=== PATIENT | male | born 1945 | race Hispanic/Latino ===

== ENCOUNTER → 2021-06-02 10:37 | Outpatient (CLI) | payer OTHER, SELFPAY ==
[2021-06-02 12:28] LABS: COVID19 -Nasal RAPID Negative (Negative)
== END ==
PROVIDERS: Family Provider Internal Medicine; PCP Internal Medicine; Referring Provider Physician Assistant; Visit Provider Physician Assistant
DX: Z20.822 Contact with and (suspected) exposure to COVID-19 (principal)
CPT/HCPCS: 87635; C9803

== ENCOUNTER 2021-06-05 10:54 | Observation (INO) | payer OTHER, SELFPAY ==
[2021-05-30 12:36] VITALS: BMI 41.0
[2021-06-04] VITALS (16 sets, daily range): BP systolic 76–140; BP diastolic 28–84; PULSE 44–83; RESP 13–28; TEMP 35.1–37.5; O2SAT 90–99; BMI 41.0
--- NOTE | 2021-06-04 06:30 | DI.RAD.S_ITS ---
PROCEDURE: XR KNEE RT 1TO2V INDICATIONS: Postop films TECHNIQUE: 2 view(s) of the knee acquired. COMPARISON: [facility], CR, XR KNEE 1 OR 2 VIEWS RIGHT, 11/29/2020, 13:11. [facility], CR, XR TIBIA FIBULA RIGHT, 04/24/2021, 11:17. [facility], CR, XR TIBIA FIBULA RIGHT, 05/22/2021, 11:55. [facility], CR, KNEE 1-2 VIEWS LEFT, 02/12/2017, 16:11. FINDINGS: Bones: Patient is status post knee joint arthroplasty. Hardware components are in expected positions. Visualized bony structures are intact. Old partially healed fibular head fracture Soft tissues: Overlying postoperative changes are noted. IMPRESSION: Total right knee prosthesis in place Healing fibular head fracture Approved by: Werner Stearns M.D. on 06/04/2021 at 11:49
[2021-06-04] MEDS: ACETAMINOPHEN 325 MG TABLET 975 MG PO (07:01)
[2021-06-04] MEDS: CELECOXIB 200 MG CAPSULE PO (07:01)
[2021-06-04] MEDS: PREGABALIN 75 MG CAPSULE PO (07:01)
[2021-06-04] MEDS: LACTATED RINGERS 1,000 ML 42 ML IV ×2 (07:03→09:35)
--- NOTE | 2021-06-04 07:30 | PM.PREOP ---
Pre-operative Note COVID-19 COVID-19 status: Negative Result date/Date tested (Pos, Neg/Pending): 06/02/21 Interval Note History & Physical reviewed/Exam performed by Physician: Yes Changes to H&P: No
[2021-06-04] MEDS: CEFAZOLIN VIAL 3 GM in SODIUM CHLORIDE 0.9% 100 ML 200 ML IV (07:48)
--- NOTE | 2021-06-04 08:29 | SUR.OPER ---
Supine on padded OR bed. Pillow under head, arms secured on padded armboards <90 degree abduction. Safety belt across torso. Non-operative leg secured with tape over blanket over lower leg. Operative leg secured in DeMayo/Cas/Nathe positioner. Foam padded brace at thigh of operative leg.
[2021-06-04] MEDS: BUPIVACAINE 0.25% W/ EPI 30 ML VIAL 60 ML INJ (08:47)
[2021-06-04] MEDS: MORPHINE 4 MG/ML INJ INJ (08:48)
[2021-06-04] MEDS: BUPIVACAINE LIPOSOME 266 MG/20 ML VIAL INJ (08:48)
[2021-06-04] MEDS: LACTATED RINGERS 1,000 ML 100 ML IV ×2 (09:45→16:19)
--- NOTE | 2021-06-04 10:17 | PM.OP.1 ---
Operative Date/Time/Diagnoses Date of procedure: 06/04/21 Time of procedure: 10:17 Pre-op diagnosis: 1. Right knee osteoarthritis 2. Rheumatoid arthritis 3. Nonunion of medial tibial plateau fracture Post-op diagnosis: same Procedure & Clinicians Procedure: Right total knee replacement with revision type tibial tray and stem Same procedure as scheduled: Yes Indications: The patient has had progressively worsening right knee pain with radiographic changes consistent with arthritis and a prior tibial plateau fracture with nonunion. Non-operative management has failed and the patient has requested total knee replacement. The risks, benefits and alternatives to surgery were discussed with the patient prior to proceeding. Risks discussed included, but were not limited to, failure to relieve pain, stiffness, infection, nerve damage, deep venous thrombosis, pulmonary embolism, stroke, coma, heart attack, permanent paralysis and , as well as the potential need for eventual revision of the prosthetic. Surgeon: Syed Hickman Assessment Expert: Lazarus Cummins Click Yes if Unassisted: No Anesthesia Type: General, Spinal and Local Operative Notes Findings: Widespread osteoarthritis in all 3 compartments with oblique vertical fracture of the medial tibial plateau with nonunion of the anteromedial corner. Closure Type: primary Specimen(s): none sent Prosthetic devices, grafts, tissues, transplants, or devices: Implants used in this procedure were manufactured by the [employer] and [employer] and included the BCS II Journey total knee replacement with a size 7 right Oxinium femoral component, a size 5 right legion revision tibial base plate with Journey locking detail, a 4 mm offset farm equipment service technician and a straight 18 mm x 120 mm stem, there was a 9 mm cross-linked journey BCS II knee tibial insert and a 32 mm oval Alfreda II patella. Applied: implant(s) Estimated Blood Loss (mL): 50 Blood products transfused: none Tourniquet time (min): 81 Procedure in detail: The patient was seen in the pre-operative area, where the patient identified the right knee as the operative site and this was marked with my initials. The patient received pre-operative antibiotics, and was taken to the operating room and placed on the operative table in the supine position. After satisfactory anesthesia, a multimedia specialist out was performed. The right leg was encircled with a tourniquet about the proximal thigh, and the leg was prepared from the toes to the tourniquet with ChloraPrep in the usual fashion and draped through sterile drapes. The leg was elevated and exsanguinated with Eschmark bandage and the tourniquet inflated to 250 mmHg pressure. The knee was approached through an approximately 18 cm incision centered over the patella and carried into the knee through a medial parapatellar arthrotomy. The anterior osteophytes and soft tissues were removed. The rotational landmarks of [place]'s line and the transepicondylar axis were marked on the femur with electrocautery, and intramedullary guide holes for the femur and tibia were created. The distal femoral cut was made in 6 degrees of valgus using the intramedullary guide at the +2 cut setting due to a pre-existing flexion contracture. The proximal tibial cut was then made using the intramedullary guide, taking 12 mm of bone off the less involved side. The deeper cut was used to accommodate the revision type tibial base plate. The extension gap was checked and the rotation of the femoral component confirmed with the gap balancing system. The anterior, posterior and chamfer cuts were then made. The posterior osteophytes and soft tissues were then removed. The posterior capsule was injected with part of a mixture of 60 ml 0.25% Marcaine mixed with 20 ml Exparel and 4 mg of morphine for post-operative pain control. The remainder of this mixture was injected into the capsule and subcutaneous tissues during cement curing. The tibia was prepared with the reamers for the revision tibial stem. He reamed to a size 16 with minimal bite. A size 18 which was the next step needed significant cortical reaming but it did fit. The trial tibial template were applied and a size 5 fit the best. This required a 4 mm offset at the 6 o'[address] position to place the tray in the appropriate position. The appropriate proximal reaming to allow the space for the farm equipment service technician was then performed. A trial prosthetic was assembled and fit well. The keel was impacted through the trial prosthetic. Trial femoral component was then placed and the intercondylar notch cut through the femoral trial. Range of motion was 0-135 degrees, with good stability throughout the range. The patella was then cut to accommodate the patellar prosthetic. There was no need for a lateral release. The trials were then removed, and the femoral hole plugged with a bone plug. The bone was prepared with pulsatile lavage, and dried with a sponge. Cement was applied and the final prosthetics placed. Excess cement was removed during and after cement curing. After confirming there was no extruded cement posteriorly, the final tibial insert was placed. The knee was copiously irrigated and the tourniquet deflated. Hemostasis was obtained. The capsule was closed with interrupted # 2 polyester suture. The subcutaneous layer was closed with 3-0 Vicryl, and the skin with a running 3-0 V-Lock suture and Dermabond. A Stan dressing was applied and the patient was taken to recovery having tolerated the procedure well. Complications: none Post-operative Condition: stable Disposition: PACU Plan for aftercare: The patient will be maintained on a standard total knee replacement protocol with weight bearing as tolerated. The patient will receive aspirin and sequential compression devices for DVT prophylaxis. The patient will be discharged home when safe for the home environment.
[2021-06-04] MEDS: ONDANSETRON 4 MG/2 ML INJ IV (11:58)
[2021-06-04] MEDS: AMLODIPINE 5 MG TABLET 10 MG PO (12:00)
[2021-06-04] MEDS: hydroCHLOROthiazide 25 MG TABLET PO (12:00)
[2021-06-04] MEDS: POTASSIUM CHLORIDE 10 MEQ TAB PO (12:01)
[2021-06-04] MEDS: polyethylene glycoL 3350 17 GM POWD.PACK PO (12:09)
[2021-06-04] MEDS: MELOXICAM 7.5 MG TABLET 15 MG PO (12:09)
[2021-06-04] MEDS: INSULIN LISPRO 100 UNIT/ML 3ML VIAL 10 UNIT SUBCUT (12:47)
[2021-06-04] MEDS: INSULIN LISPRO 100 UNIT/ML 3ML VIAL SUBCUT (12:48)
--- NOTE | 2021-06-04 13:27 | PC.NURSE ---
Pt arrived on floor at approx 1100 from PACU. He denied pain and was bradycardic at 45 and 92% on 3L. MD aware. SCDs on bilateral legs. R knee dressing C/D/I and green light indicator on MINESH illuminated. Pt skin is intact but for surgical incision and small bruise on lateral L wrist unknown origin. Pt's spouse Debbie advised that patient has a paradoxical reaction to oxycodone; he becomes agitated and uncooperative, so pain medication switched to dilaudid. Pt had N/V before lunch x 2, 200 mLs and 600 mLs, but resolved with IVP Zofran. Spouse and bedside and patient able to sleep.
[2021-06-04] MEDS: ACETAMINOPHEN 325 MG TABLET 650 MG PO ×2 (14:07→20:36)
[2021-06-04] MEDS: ONDANSETRON 4 MG ODT PO (14:09)
--- NOTE | 2021-06-04 14:16 | PC.NURSE ---
Pt O2 sat = 94% on 2L.
--- NOTE | 2021-06-04 15:45 | PT.IIE ---
Current Diagnoses Rheumatoid arthritis, unspecified (06/04/21) Unilateral primary osteoarthritis, right knee (06/04/21) Displaced bicondylar fracture of right tibia, subsequent encounter for closed fracture with nonunion (06/04/21) Surgery Performed Operation Date: 06/04/21 07:45 Actual Procedures p Total Knee Arthroplasty(Right) - Syed Hickman MD Medical History (Last Reviewed 06/04/21 @ 08:26 by Medina Do RN) Anemia Aortic stenosis Asthma Diabetes Diabetic neuropathy Former smoker Heart murmur History of hemorrhoids HLD (hyperlipidemia) [place] (hard of hearing) HTN (hypertension) Kidney stones LVH (left ventricular hypertrophy) Nuclear senile cataract LIO on CPAP Presbyopia Physical Therapy Inpatient Evaluation/Re-Eval M1 PT/OT-IP Prior Functional Status Start: 06/04/21 12:03 Freq: NEEDED Status: Active Protocol: Document 06/04/21 15:45 AW (Rec: 06/04/21 16:41 AW [id number]) Medical Review Prior Functional Status Medical History Reviewed Yes Communication WNL. Pt is an effective verbal communicator. Mobility and Gait Pt is modified independent with use of 4WW for household and very limited community mobility. He has been using the walker since rehabbing from a fall in June 2020 with tibial plateau fracture. Before that injury, he did not use any assistive device. Activities of Daily Living and IADL's Independent with dressing and showering. Pt states he uses a urinal for night time voids to avoid painful ambulation and reduce risk of falls. Social History Household Members spouse Living Arrangements House Number of Floors (Floors) One Floor Number of Stairs To Enter/Railing? Ramped entry through garage. Pt states there is a sunken living room in the house but everything has been set up so that he does not need to access that room. Home Environment Standard Height Toilet,Tub/ Shower Home Equipment Front Wheel Walker,Four Wheel Walker,Straight Cane,Manual Wheelchair,Raised Toilet Seat Without Armrests,Tub Transfer Bench,Hand Held Shower,Sock Aid,Grab Bars Near Toilet Employment Status Retired Additional Social History Comment Pt lives with his who is retired. She will be available and able to assist as needed at discharge. M2 PT-IP Current Condition Start: 06/04/21 12:03 Freq: NEEDED Status: Active Protocol: Document 06/04/21 15:45 AW (Rec: 06/04/21 16:41 AW [id number]) Physical Therapy Current Condition Current Condition Evaluation Date 06/04/21 Treatment Diagnosis s/p R TKA; difficulty in walking Onset Date 06/04/21 Weight Bearing Status Weight Bearing Status Weight Bear as Tolerated M3 PT-IP Subjective Start: 06/04/21 12:03 Freq: NEEDED Status: Active Protocol: Document 06/04/21 15:45 AW (Rec: 06/04/21 16:41 AW [id number]) Subjective Physical Therapy Visit Type Type Initial Evaluation Visit Start Time 15:11 Visit Stop Time 15:45 Total Visit Minutes 34 Notes Pt's spouse was present throughout evaluation Number of MACHINIST GENERAL Visits 0 Physical Therapy Visit Comments Patient Comments Pt has been quite nauseous but hasn't vomited in over an hour. He is willing to participate with PT Patient Goals Return home with spouse support Therapy Pain Assessment Pain When Pain Assessed During Mobility Pain Present Pain Present Pain Reported Location r knee Intensity 8 Scale Used Numeric (0 - 10) Pain Management Techniques Apply Cold,Elevation,Timing of Activity with Medications M4 PT-IP Mobility and Gait Start: 06/04/21 12:03 Freq: NEEDED Status: Active Protocol: Document 06/04/21 15:45 AW (Rec: 06/04/21 16:41 AW [id number]) PT-Bed Mobility Assessment Supine to Sit Supine to Sit Minimal Assistance,1 Person Assistance,Bedrails PT-Transfer Assessment Sit to and From Stand Sit to and from Stand Minimal Assistance,1 Person Assistance,Use of Upper Extremities Equipment Transfer Assistive Device Gait Belt,Front Wheeled Walker Orthotic/Prosthetic Devices or Brace: No Transfers Transfer Destination Chair Transfer Technique Stand Step Pivot Transfer Ability Level of Assist Contact Guard Assistance,1 Person Assistance,Use of Upper Extremities Comments Mobility Comments Pt was lying in bed as PT arrived. BP 133/59 HR 47 SpO2 98% on 2L/min via NC. He was able to scoot toward left EOB and needed min assist to right his trunk. In sitting EOB, pt complained of slight lightheadedness. BP was stable . SpO2 was 91% on 2L. Pt stood from the bed min A x 1 and took short halting steps with FWW to transfer to the chair. Stand to sit required CGA. Pt reported mild lightheadedness and nausea, declining further mobility. Reported findings to RN. Left pt with ice packs applied to right knee, call light and tray table in reach. Gait Assessment Gait Gait Assistance Required: Contact Guard Assist Distance (Feet) 3 Able to Maintain Weight Bearing Status Yes During Gait Assistive Devices Assistive Device Gait Belt,Front Wheeled Walker Orthotic/Prosthetic Devices or Brace: No Gait Deviations General Gait Pattern Antalgic,Decreased Stride Length,Decreased Feet Clearance,Wide Based Gait Factors Limiting Gait Function Factors Limiting Gait Function Decreased Activity Tolerance, Decreased Strength,Limited Range of Motion,Pain,Poor Balance Comments Gait Comments Transfer only. See mobility comments for details. Stair Climbing Assessment Comments Stair Climbing Comments Not assessed. Pt will not need to climb stairs at home. PT-Balance Assessment Sitting Balance and Reactions Static Sitting Balance Ability Good Dynamic Sitting Balance Ability Good Standing Balance and Reactions Static Standing Balance Ability Fair Dynamic Standing Balance Ability Fair Device Used FWW M5 PT-IP Objective Assessments Start: 06/04/21 12:03 Freq: NEEDED Status: Active Protocol: Document 06/04/21 15:45 AW (Rec: 06/04/21 16:41 AW [id number]) Orientation Orientation/Cognition Level of Alertness Alert Orientation Name,Day of Week,Place, Situation Language Function Ability No Deficits Noted Safety Awareness Understands Safety Issues Memory Description No Deficits Noted Gross Range of Motion Lower Extremity ROM Assessment Right Impaired Strength Lower Extremity Strength Assessment Right Impaired Hip 4/5 Ankle 4+/5 Sensation Assessment Sensation Gross Sensation WNL M6 PT-IP Treatment Start: 06/04/21 12:03 Freq: NEEDED Status: Active Protocol: Document 06/04/21 15:45 AW (Rec: 06/04/21 16:41 AW [id number]) Physical Therapy Treatment Exercises Exercises Ankle Pumps,Quad Sets,Heel Slides,Passive Knee Extension Hang Education Education Provided Weight Bearing Status,Post-Op Packet,Safety Other Treatments Other Treatment Performed Provided education on PT plan of care, weightbearing status, and safe use of FWW. M7 PT-IP Assessment and Plan Start: 06/04/21 12:03 Freq: NEEDED Status: Active Protocol: Document 06/04/21 15:45 AW (Rec: 06/04/21 16:41 AW [id number]) PT Summary Assessment and Plan Potential Rehabilitation Potential Good Status of Condition at Evaluation Evolving Summary Impairments Pain,ROM,Strength,Balance,Bed Mobility,Transfers,Gait, Activity Tolerance Assessment Summary Adrián is a 75 yo man with history of right tibial plateau fracture with malunion . He was seen for PT evaluation on POD0 following R TKA. He is modified independent at baseline with 4WW for household and limited community ambulation. On assessment, pt required CGA to min assist for all mobility. PT anticipates he will progress and be safe to discharge home with assist and outpatient PT once medically cleared. Goals Bed Mobility Goal Standby Assistance Transfer Goal Standby Assistance,Front Wheeled Walker Gait Goal Standby Assistance,Front Wheel Walker Gait Distance 75 Days to Meet Goals 3 Frequency of Treatment Frequency Of Treatment Twice a Day Treatment Plan Physical Therapy Treatment Plan Bed Mobility Training,Transfer Training,Gait Training, Therapeutic Exercise,Balance Retraining,Post Op Education, Discharge Planning,Hot or Cold Pack Other Recommendations and Next Treatment review ther ex; transfers and Focus gait training Precautions Other Precautions WBAT RLE Recommendations To Nursing Amount of Assist Needed 1 Person Assist Discharge Recommendations PT Discharge Recommendations Home with Assistance, Outpatient PT Transportation Needs at Discharge Private Vehicle
[2021-06-04] MEDS: DOCUSATE 100 MG CAPSULE PO (20:35)
[2021-06-04] MEDS: ATORVASTATIN 20 MG TABLET PO (20:35)
[2021-06-04] MEDS: ENALAPRIL 20 MG TABLET PO (20:36)
[2021-06-04] MEDS: carvediloL 12.5 MG TABLET 25 MG PO (20:36)
[2021-06-04] MEDS: ASPIRIN EC 81 MG TABLET PO (20:36)
[2021-06-04] MEDS: INSULIN GLARGINE 100 UNIT/ML 3ML PEN 50 UNIT SUBCUT (20:38)
[2021-06-04] MEDS: HYDROMORPHONE 4 MG TABLET PO (21:02)
[2021-06-05] VITALS (11 sets, daily range): BP systolic 105–145; BP diastolic 57–75; PULSE 58–71; RESP 15–19; TEMP 36.8–37.3; O2SAT 89–96
[2021-06-05] MEDS: HYDROMORPHONE 2 MG TABLET PO ×2 (01:26→07:57)
[2021-06-05] MEDS: LACTATED RINGERS 1,000 ML 100 ML IV (02:32)
[2021-06-05 05:30] LABS: Hematocrit 30.8 % (41-53); Hemoglobin 10.1 g/dL (13.5-17.5)
--- NOTE | 2021-06-05 07:23 | PM.PNPO.1 ---
Subjective Subjective Date Patient Seen: 06/05/21 Time Patient Seen: 07:23 Interval history: The patient reports he has reasonable pain control. Exam Vital Signs (past 8 hours): - 06/05/21 03:15 Temperature 98.8 F Pulse Rate 71 Respiratory Rate 18 Blood Pressure 137/67 Pulse Oximetry 93 Oxygen Delivery Method Nasal Cannula,CPAP Oxygen Flow Rate 2 Narrative Exam Narrative: Right knee wound is dressed with no drainage on the bandage. Calf is soft. Light touch and motion are intact in the right lower extremity. Alignment is neutral. Objective Labs Result Diagrams: 06/05/21 05:01 Labs: Laboratory Results - last 24 hr 06/05/21 05:01 Hgb 10.1 L Hct 30.8 L PFSH Medical History Anemia Aortic stenosis Asthma Diabetes Diabetic neuropathy Former smoker Heart murmur History of hemorrhoids HLD (hyperlipidemia) [place] (hard of hearing) HTN (hypertension) Kidney stones LVH (left ventricular hypertrophy) Nuclear senile cataract LIO on CPAP Presbyopia Surgical History (Updated 05/30/21 @ 12:42 by Leann Lee RN) History of arthroplasty of left knee (02/12/17) History of lithotripsy History of total right hip arthroplasty Social History household members: spouse Smoking Status: Former smoker alcohol intake: never Assessment & Plan Post-op Postoperative Procedures: Procedures Operation Date: 06/04/21 07:45 Actual Procedure Side Surgeon p Total Knee Arthroplasty Right Syed Hickman MD Postoperative day: 1 Postoperative status narrative: The patient is doing well postoperatively after his total knee replacement with a revision tibia due to tibial plateau fracture nonunion. He is morbidly obese and has limited help at home. He has been able to get up and make a few steps in the room but has not made any steps in the hallway. Postoperative plan: routine post-op care and ambulate Postoperative plan narrative: Physical therapy today. Given his size and medical comorbidities, it is unlikely he will be able to go home today. We will continue physical therapy implant discharge tomorrow. Time Spent With Patient Time with patient: less than 15 minutes
[2021-06-05] MEDS: AMLODIPINE 5 MG TABLET 10 MG PO (07:57)
[2021-06-05] MEDS: hydroCHLOROthiazide 25 MG TABLET PO (07:57)
[2021-06-05] MEDS: ACETAMINOPHEN 325 MG TABLET 650 MG PO ×3 (07:57→21:12)
[2021-06-05] MEDS: hydrOXYzine pamoate 25 MG CAPSULE PO ×2 (07:57→13:08)
[2021-06-05] MEDS: POTASSIUM CHLORIDE 10 MEQ TAB PO (07:58)
[2021-06-05] MEDS: ASPIRIN EC 81 MG TABLET PO ×2 (07:58→21:11)
[2021-06-05] MEDS: carvediloL 12.5 MG TABLET 25 MG PO ×2 (07:58→21:11)
[2021-06-05] MEDS: MELOXICAM 7.5 MG TABLET 15 MG PO (08:17)
[2021-06-05] MEDS: FISH OIL 1,000 MG CAPSULE 1000 MG PO (08:17)
[2021-06-05] MEDS: DOCUSATE 100 MG CAPSULE PO ×2 (09:00→21:11)
[2021-06-05] MEDS: INSULIN LISPRO 100 UNIT/ML 3ML VIAL 10 UNIT SUBCUT ×2 (10:16→13:07)
[2021-06-05] MEDS: ENALAPRIL 20 MG TABLET PO ×2 (10:22→21:12)
[2021-06-05] MEDS: HYDROMORPHONE 4 MG TABLET PO ×3 (10:39→21:12)
--- NOTE | 2021-06-05 11:13 | CM.DANOTE ---
DCP: Case received, EMR reviewed and met with patient. Introduced self and role. Was able to obtain information from patient regarding his baseline activity status prior to surgery, as well as his current living situation. DCP assessment completed with information currently available. Patient is a 75 year old male who admitted yesterday morning to the care of the orthopedic team. PCP: Dr. Xie. Payer: confirmed: [employer]. Patient came to the hospital via private vehicle for a surgical procedure. He had right total knee arthroplasty. He has history of osteoarthritis of his right knee. He has history of falls, and has been using 4WW at home since recent fall. Met with patient in his room. He is alert and oriented, and was sitting up in his chair. He resides in [facility] with his spouse, Debbie. He confirmed that he uses a 4WW for home use at his baseline, and has been able to drive. He stated that he is currently set up with outpatient P.T. in [facility]. P: DCP to continue to follow. He will continue to work with P.T. According to ortho's notes, he will be here another day due to co-morbidities. Catherine Messina RN/Replacer
--- NOTE | 2021-06-05 11:33 | PT.IPTN ---
Current Diagnoses Rheumatoid arthritis, unspecified (06/05/21) Unilateral primary osteoarthritis, right knee (06/05/21) Displaced bicondylar fracture of right tibia, subsequent encounter for closed fracture with nonunion (06/05/21) Surgery Performed Operation Date: 06/04/21 07:45 Actual Procedures p Total Knee Arthroplasty(Right) - Syed Hickman MD Physical Therapy Treatment Note M2 PT-IP Current Condition Start: 06/04/21 12:03 Freq: NEEDED Status: Active Protocol: Document 06/04/21 15:45 AW (Rec: 06/04/21 16:41 AW [id number]) Physical Therapy Current Condition Current Condition Evaluation Date 06/04/21 Treatment Diagnosis s/p R TKA; difficulty in walking Onset Date 06/04/21 Weight Bearing Status Weight Bearing Status Weight Bear as Tolerated M3 PT-IP Subjective Start: 06/04/21 12:03 Freq: NEEDED Status: Active Protocol: Document 06/05/21 11:03 SP (Rec: 06/05/21 11:55 SP [id number]) Subjective Physical Therapy Visit Type Type Treatment Note Visit Start Time 11:03 Visit Stop Time 11:33 Total Visit Minutes 30 Notes Spouse started caregiver training: donned gait belt, CGA during gait yulissa thus far. WIRE SPINNER in room taking vitals: supine 129/57 HR 56 SaO2 93% on 2L seated at EOB w/ ASSOCIATE EMBALMER/FUNERAL DIRECTOR: 131/62, HR 62, SaO2 88% on 1L, increased to 91% with breath instruction. seated post standing mobility: 125/46, HR 64 84% on 1L increase to 88% on 1L w / breath, low 90s on 2L. Number of ASSOCIATE EMBALMER/FUNERAL DIRECTOR Visits 1 Physical Therapy Visit Comments Patient Comments Pt willing to participate in PT. Patient Goals Return home with spouse support Therapy Pain Assessment Pain When Pain Assessed At Rest Pain Present Pain Present Pain Reported Location r knee Intensity 7 Scale Used 7/10 at rest, 6.5/10 during gait Pain Behaviors Facial Grimacing,Guarding Pain Management Techniques Apply Cold,Distraction,Re- positioning,Timing of Activity with Medications M4 PT-IP Mobility and Gait Start: 06/04/21 12:03 Freq: NEEDED Status: Active Protocol: Document 06/05/21 11:03 SP (Rec: 06/05/21 11:55 SP [id number]) PT-Bed Mobility Assessment Supine to Sit Supine to Sit Moderate Assistance,1 Person Assistance Scooting Scooting to Edge of Bed Contact Guard Assistance PT-Transfer Assessment Sit to and From Stand Sit to and from Stand Minimal Assistance,1 Person Assistance,Use of Upper Extremities Equipment Transfer Assistive Device Gait Belt,Front Wheeled Walker Orthotic/Prosthetic Devices or Brace: No Transfers Transfer Destination Chair Transfer Technique pt ambulated using FWW Transfer Ability Level of Assist Contact Guard Assistance,1 Person Assistance,Use of Upper Extremities Comments Mobility Comments Supine>sit Max A with HOB flat used therapist hand to pull from RUE, cued for LUE WB self mobilize on bed to right trunk, scoot to EOB CGA and instructed self RLE repositioning using gait belt, ASSOCIATE EMBALMER/FUNERAL DIRECTOR applied gait belt to RLE. Pt SOB +, instructed pt on proper breath, decrease in saturation during mobility. Decreased 1L 84%, improvement with breath 88%, mid low- mid 90s on2L. Sit>Stand 5% A using FWW proper hand placement. Gait 2 laps around room approx 60 ft with noted heavy BUE WB on FWW improved but decreased WB onto RLE, quick LLE swing through step to gait, cued for heel toe with improvement in decreased toe walking on RLE. Pt returned to chair, Min A by with cues by ASSOCIATE EMBALMER/FUNERAL DIRECTOR for slow descent proper use of BUE and RLE in front, Min flopped into chair discussed will progress better control next tx and awareness demo with CNAs. Instructed pt on LE exercises in sitting. Will instruction next tx on supine. Pt had call light and all needs in reach in room before left. Gait Assessment Gait Gait Assistance Required: Contact Guard Assist Distance (Feet) 60 Able to Maintain Weight Bearing Status Yes During Gait Assistive Devices Assistive Device Gait Belt,Front Wheeled Walker Orthotic/Prosthetic Devices or Brace: No Gait Deviations General Gait Pattern Antalgic,Decreased Stride Length,Decreased Feet Clearance,Step-to Gait,Wide Based Gait Factors Limiting Gait Function Factors Limiting Gait Function Decreased Activity Tolerance, Decreased Strength,Limited Range of Motion,Pain, Respiratory Distress Comments Gait Comments See mobility comments. Stair Climbing Assessment Comments Stair Climbing Comments Not assessed. Pt will not need to climb stairs at home. PT-Balance Assessment Sitting Balance and Reactions Static Sitting Balance Ability Good Dynamic Sitting Balance Ability Good Standing Balance and Reactions Static Standing Balance Ability Fair Dynamic Standing Balance Ability Fair Device Used FWW M5 PT-IP Objective Assessments Start: 08/09/21 12:03 Freq: NEEDED Status: Active Protocol: Document 06/04/21 15:45 AW (Rec: 06/04/21 16:41 AW [id number]) Orientation Orientation/Cognition Level of Alertness Alert Orientation Name,Day of Week,Place, Situation Language Function Ability No Deficits Noted Safety Awareness Understands Safety Issues Memory Description No Deficits Noted Gross Range of Motion Lower Extremity ROM Assessment Right Impaired Strength Lower Extremity Strength Assessment Right Impaired Hip 4/5 Ankle 4+/5 Sensation Assessment Sensation Gross Sensation WNL M6 PT-IP Treatment Start: 06/04/21 12:03 Freq: NEEDED Status: Active Protocol: Document 06/05/21 11:03 SP (Rec: 06/05/21 11:55 SP [id number]) Physical Therapy Treatment Exercises Exercises Ankle Pumps,Quad Sets,Heel Slides,Seated Knee Flexion/ Extension Education Education Provided Weight Bearing Status,Post-Op Packet,Safety Other Treatments Other Treatment Performed Discussed supine ex but not performed, performed seated heel slides and DF to allow increase toe clearance while in chair. Will assess supine next tx. M7 PT-IP Assessment and Plan Start: 06/04/21 12:03 Freq: NEEDED Status: Active Protocol: Document 06/05/21 11:03 SP (Rec: 06/05/21 11:55 SP [id number]) PT Summary Assessment and Plan Potential Rehabilitation Potential Good Status of Condition at Evaluation Evolving Summary Impairments Pain,ROM,Strength,Balance,Bed Mobility,Transfers,Gait, Activity Tolerance Progress Towards Goals Progressing Toward Goals,Slow Progress due to Pain,Slow Progress due to Activity Tolerance Assessment Summary Pt required Max A supine>sit w / HOB flat, sit<>stand Min A, gait heavy BUE WB on FWW but improve able WB on RLE, CGA. Will see for pm tx at 1300 to improve strength and functional mobility. ASSOCIATE EMBALMER/FUNERAL DIRECTOR anticipates he will progress and be safe to discharge home with assist and outpatient PT once medically cleared. Goals Bed Mobility Goal Standby Assistance Transfer Goal Standby Assistance,Front Wheeled Walker Gait Goal Standby Assistance,Front Wheel Walker Gait Distance 75 Days to Meet Goals 3 Frequency of Treatment Frequency Of Treatment Twice a Day Treatment Plan Physical Therapy Treatment Plan Bed Mobility Training,Transfer Training,Gait Training, Therapeutic Exercise,Balance Retraining,Post Op Education, Discharge Planning,Hot or Cold Pack Other Recommendations and Next Treatment review ther ex; transfers and Focus gait training. See at 1300 pm. Precautions Other Precautions WBAT RLE Recommendations To Nursing Amount of Assist Needed 1 Person Assist Discharge Recommendations PT Discharge Recommendations Home with Assistance, Outpatient PT
--- NOTE | 2021-06-05 11:33 | PT.IPTN ---
Current Diagnoses Rheumatoid arthritis, unspecified (06/04/21) Unilateral primary osteoarthritis, right knee (06/04/21) Displaced bicondylar fracture of right tibia, subsequent encounter for closed fracture with nonunion (06/04/21) Surgery Performed Operation Date: 06/04/21 07:45 Actual Procedures p Total Knee Arthroplasty(Right) - Syed Hickman MD Physical Therapy Treatment Note M2 PT-IP Current Condition Start: 06/04/21 12:03 Freq: NEEDED Status: Active Protocol: Document 06/04/21 15:45 AW (Rec: 06/04/21 16:41 AW [id number]) Physical Therapy Current Condition Current Condition Evaluation Date 06/04/21 Treatment Diagnosis s/p R TKA; difficulty in walking Onset Date 06/04/21 Weight Bearing Status Weight Bearing Status Weight Bear as Tolerated M3 PT-IP Subjective Start: 06/04/21 12:03 Freq: NEEDED Status: Active Protocol: Document 06/05/21 11:03 SP (Rec: 06/05/21 11:55 SP [id number]) Subjective Physical Therapy Visit Type Type Treatment Note Visit Start Time 11:03 Visit Stop Time 11:33 Total Visit Minutes 30 Notes Spouse started caregiver training: donned gait belt, CGA during gait yulissa thus far. BIODIESEL TECHNOLOGY MANAGER in room taking vitals: supine 129/57 HR 56 SaO2 93% on 2L seated at EOB w/ INTEGRATION PROJECT MANAGER: 131/62, HR 62, SaO2 88% on 1L, increased to 91% with breath instruction. seated post standing mobility: 125/46, HR 64 84% on 1L increase to 88% on 1L w / breath, low 90s on 2L. Number of INTEGRATION PROJECT MANAGER Visits 1 Physical Therapy Visit Comments Patient Comments Pt willing to participate in PT. Patient Goals Return home with spouse support Therapy Pain Assessment Pain When Pain Assessed At Rest Pain Present Pain Present Pain Reported Location r knee Intensity 7 Scale Used 7/10 at rest, 6.5/10 during gait Pain Behaviors Facial Grimacing,Guarding Pain Management Techniques Apply Cold,Distraction,Re- positioning,Timing of Activity with Medications M4 PT-IP Mobility and Gait Start: 06/04/21 12:03 Freq: NEEDED Status: Active Protocol: Document 06/05/21 11:03 SP (Rec: 06/05/21 11:55 SP [id number]) PT-Bed Mobility Assessment Supine to Sit Supine to Sit Moderate Assistance,1 Person Assistance Scooting Scooting to Edge of Bed Contact Guard Assistance PT-Transfer Assessment Sit to and From Stand Sit to and from Stand Minimal Assistance,1 Person Assistance,Use of Upper Extremities Equipment Transfer Assistive Device Gait Belt,Front Wheeled Walker Orthotic/Prosthetic Devices or Brace: No Transfers Transfer Destination Chair Transfer Technique pt ambulated using FWW Transfer Ability Level of Assist Contact Guard Assistance,1 Person Assistance,Use of Upper Extremities Comments Mobility Comments Supine>sit Max A with HOB flat used therapist hand to pull from RUE, cued for LUE WB self mobilize on bed to right trunk, scoot to EOB CGA and instructed self RLE repositioning using gait belt, INTEGRATION PROJECT MANAGER applied gait belt to RLE. Pt SOB +, instructed pt on proper breath, decrease in saturation during mobility. Decreased 1L 84%, improvement with breath 88%, mid low- mid 90s on2L. Sit>Stand 5% A using FWW proper hand placement. Gait 2 laps around room approx 60 ft using FWW, cued for heel toe with improvement in decrease toe walking on RLE, step to gait. Pt returned to chair, Min A by with cues by INTEGRATION PROJECT MANAGER for slow descent proper use of BUE and RLE in front, Min flopped into chair discussed will progress better control next tx and awareness demo with CNAs. Instructed pt on LE exercises in sitting. Will instruction next tx on supine. Pt had call light and all needs in reach in room before left. Gait Assessment Gait Gait Assistance Required: Contact Guard Assist Distance (Feet) 60 Able to Maintain Weight Bearing Status Yes During Gait Assistive Devices Assistive Device Gait Belt,Front Wheeled Walker Orthotic/Prosthetic Devices or Brace: No Gait Deviations General Gait Pattern Antalgic,Decreased Stride Length,Decreased Feet Clearance,Step-to Gait,Wide Based Gait Factors Limiting Gait Function Factors Limiting Gait Function Decreased Activity Tolerance, Decreased Strength,Limited Range of Motion,Pain, Respiratory Distress Comments Gait Comments See mobility comments. Stair Climbing Assessment Comments Stair Climbing Comments Not assessed. Pt will not need to climb stairs at home. PT-Balance Assessment Sitting Balance and Reactions Static Sitting Balance Ability Good Dynamic Sitting Balance Ability Good Standing Balance and Reactions Static Standing Balance Ability Fair Dynamic Standing Balance Ability Fair Device Used FWW M5 PT-IP Objective Assessments Start: 06/04/21 12:03 Freq: NEEDED Status: Active Protocol: Document 06/04/21 15:45 AW (Rec: 06/04/21 16:41 AW [id number]) Orientation Orientation/Cognition Level of Alertness Alert Orientation Name,Day of Week,Place, Situation Language Function Ability No Deficits Noted Safety Awareness Understands Safety Issues Memory Description No Deficits Noted Gross Range of Motion Lower Extremity ROM Assessment Right Impaired Strength Lower Extremity Strength Assessment Right Impaired Hip 4/5 Ankle 4+/5 Sensation Assessment Sensation Gross Sensation WNL M6 PT-IP Treatment Start: 06/04/21 12:03 Freq: NEEDED Status: Active Protocol: Document 06/05/21 11:03 SP (Rec: 06/05/21 11:55 SP [id number]) Physical Therapy Treatment Exercises Exercises Ankle Pumps,Quad Sets,Heel Slides,Seated Knee Flexion/ Extension Education Education Provided Weight Bearing Status,Post-Op Packet,Safety Other Treatments Other Treatment Performed Discussed supine ex but not performed, performed seated heel slides and DF to allow increase toe clearance while in chair. Will assess supine next tx. M7 PT-IP Assessment and Plan Start: 06/04/21 12:03 Freq: NEEDED Status: Active Protocol: Document 06/05/21 11:03 SP (Rec: 06/05/21 11:55 SP [id number]) PT Summary Assessment and Plan Potential Rehabilitation Potential Good Status of Condition at Evaluation Evolving Summary Impairments Pain,ROM,Strength,Balance,Bed Mobility,Transfers,Gait, Activity Tolerance Progress Towards Goals Progressing Toward Goals,Slow Progress due to Pain,Slow Progress due to Activity Tolerance Assessment Summary Pt required Max A supine>sit w / HOB flat, sit<>stand Min A, gait CGA using FWW. Will see for pm tx at 1300 to improve strength and functional mobility. INTEGRATION PROJECT MANAGER anticipates he will progress and be safe to discharge home with assist and outpatient PT once medically cleared. Goals Bed Mobility Goal Standby Assistance Transfer Goal Standby Assistance,Front Wheeled Walker Gait Goal Standby Assistance,Front Wheel Walker Gait Distance 75 Days to Meet Goals 3 Frequency of Treatment Frequency Of Treatment Twice a Day Treatment Plan Physical Therapy Treatment Plan Bed Mobility Training,Transfer Training,Gait Training, Therapeutic Exercise,Balance Retraining,Post Op Education, Discharge Planning,Hot or Cold Pack Other Recommendations and Next Treatment review ther ex; transfers and Focus gait training. See at 1300 pm. Precautions Other Precautions WBAT RLE Recommendations To Nursing Amount of Assist Needed 1 Person Assist Discharge Recommendations PT Discharge Recommendations Home with Assistance, Outpatient PT
[2021-06-05] MEDS: INSULIN LISPRO 100 UNIT/ML 3ML VIAL SUBCUT (13:07)
--- NOTE | 2021-06-05 13:32 | PT.IPTN ---
Current Diagnoses Rheumatoid arthritis, unspecified (06/05/21) Unilateral primary osteoarthritis, right knee (06/05/21) Displaced bicondylar fracture of right tibia, subsequent encounter for closed fracture with nonunion (06/05/21) Surgery Performed Operation Date: 06/04/21 07:45 Actual Procedures p Total Knee Arthroplasty(Right) - Syed Hickman MD Physical Therapy Treatment Note M2 PT-IP Current Condition Start: 06/04/21 12:03 Freq: NEEDED Status: Active Protocol: Document 06/04/21 15:45 AW (Rec: 06/04/21 16:41 AW [id number]) Physical Therapy Current Condition Current Condition Evaluation Date 06/04/21 Treatment Diagnosis s/p R TKA; difficulty in walking Onset Date 06/04/21 Weight Bearing Status Weight Bearing Status Weight Bear as Tolerated M3 PT-IP Subjective Start: 06/04/21 12:03 Freq: NEEDED Status: Active Protocol: Document 06/05/21 13:13 SP (Rec: 06/05/21 15:38 SP [id number]) Subjective Physical Therapy Visit Type Type Treatment Note Visit Start Time 13:13 Visit Stop Time 13:32 Total Visit Minutes 19 Notes Spouse completed caregiver training gait, sit>supine. SaO2 rest and mob: 2L 94%, rest 91-92% on 1L. Reduced to 84% on 1L during standing mobility. seated rest w/ breath cues 1 min 88% on 1L, 96% on 2L. Number of ACETYLENE OPERATOR Visits 2 Physical Therapy Visit Comments Patient Comments Pt willing to participate in PT. Patient Goals Return home with spouse support Therapy Pain Assessment Pain When Pain Assessed At Rest Pain Present Pain Present Pain Reported Location r knee Intensity 6 Scale Used 6.5/10 at rest and mobility Description Aching,With Movement Pain Behaviors Facial Grimacing Pain Management Techniques Apply Cold,Distraction,Re- positioning,Timing of Activity with Medications M4 PT-IP Mobility and Gait Start: 06/04/21 12:03 Freq: NEEDED Status: Active Protocol: Document 06/05/21 13:13 SP (Rec: 06/05/21 15:38 SP [id number]) PT-Bed Mobility Assessment Sit to Supine Sit to Supine Contact Guard Assistance, Minimal Assistance,1 Person Assistance,Bedrails Scooting Scooting Up and Down in Bed Standby Assistance PT-Transfer Assessment Sit to and From Stand Sit to and from Stand Contact Guard Assistance,1 Person Assistance,Use of Upper Extremities Equipment Transfer Assistive Device Gait Belt,Front Wheeled Walker Orthotic/Prosthetic Devices or Brace: No Transfers Transfer Destination Bed Transfer Technique pt ambulated using FWW Transfer Ability Level of Assist Standby Assistance,Contact Guard Assistance,1 Person Assistance,Use of Upper Extremities Comments Mobility Comments Pt reclined in chair with in room when arrived. Assisted chair leg lowering and RLE support Min A. donned gait belt, Sit>stand CGA with BUE on chair arms RLE forward. Gait around SBA ( also managed O2 tubing) x2 laps then required sit back on bed due to tiring and + SOB sBA with good hand placement due to tiring SBA. Noted PECO drain leakage, ELECTRICIAN MAINTENANCE and ACETYLENE OPERATOR assist another gown and washcloth with self redressing at EOB. Sit>supine Min A via for LEs into bed 5% A, cued castro LLE under RLE, cued for LLE hook under RLE, decided not to use gait belt for self support. Self scoot up in bed using [place] bed rails and LLE WB on bed. Pt had call light and all needs in reach, CP on R knee before left. in room. Gait Assessment Gait Gait Assistance Required: Standby Assistance,Contact Guard Assist,1 Person Assist Distance (Feet) 60 Able to Maintain Weight Bearing Status Yes During Gait Assistive Devices Assistive Device Gait Belt,Front Wheeled Walker Orthotic/Prosthetic Devices or Brace: No Gait Deviations General Gait Pattern Antalgic,Decreased Stride Length,Decreased Feet Clearance,Step-to Gait,Wide Based Gait Factors Limiting Gait Function Factors Limiting Gait Function Decreased Activity Tolerance, Decreased Strength,Limited Range of Motion,Pain, Respiratory Distress Comments Gait Comments See mobility comments. Stair Climbing Assessment Comments Stair Climbing Comments Not assessed. Pt will not need to climb stairs at home. PT-Balance Assessment Sitting Balance and Reactions Static Sitting Balance Ability Good Dynamic Sitting Balance Ability Good Standing Balance and Reactions Static Standing Balance Ability Fair Dynamic Standing Balance Ability Fair Device Used FWW M5 PT-IP Objective Assessments Start: 06/04/21 12:03 Freq: NEEDED Status: Active Protocol: Document 06/04/21 15:45 AW (Rec: 06/04/21 16:41 AW [id number]) Orientation Orientation/Cognition Level of Alertness Alert Orientation Name,Day of Week,Place, Situation Language Function Ability No Deficits Noted Safety Awareness Understands Safety Issues Memory Description No Deficits Noted Gross Range of Motion Lower Extremity ROM Assessment Right Impaired Strength Lower Extremity Strength Assessment Right Impaired Hip 4/5 Ankle 4+/5 Sensation Assessment Sensation Gross Sensation WNL M6 PT-IP Treatment Start: 06/04/21 12:03 Freq: NEEDED Status: Active Protocol: Document 06/05/21 13:13 SP (Rec: 06/05/21 15:38 SP [id number]) Physical Therapy Treatment Education Education Provided Weight Bearing Status,Safety Other Treatments Other Treatment Performed reviewed breath during gait and stop stand rest breath as needed for energy conservation . M7 PT-IP Assessment and Plan Start: 06/04/21 12:03 Freq: NEEDED Status: Active Protocol: Document 06/05/21 13:13 SP (Rec: 06/05/21 15:38 SP [id number]) PT Summary Assessment and Plan Potential Rehabilitation Potential Good Status of Condition at Evaluation Evolving Summary Impairments Pain,ROM,Strength,Balance,Bed Mobility,Transfers,Gait, Activity Tolerance Assessment Summary Pt required CGA sit<> stand,CG - SBA during gait in room using FWW. sit>supine Min A for LE support into bed. Pt's pain still limit his mobility, improved with lessening to Mod WB BUE on FWW step to gait due to pain in RLE during WB, able to get R heel on floor but continue not fully WB on RLE. Continues to need supplimental O2 during mobility, didn't use O2 at home previously. REviewed use of inspirometer with cues for slow breath. Will continue to assess progress. Next tx caregiver training with spouse including bed mobility, transfers, gait. Goals Bed Mobility Goal Standby Assistance Transfer Goal Standby Assistance,Front Wheeled Walker Gait Goal Standby Assistance,Front Wheel Walker Gait Distance 75 Days to Meet Goals 3 Frequency of Treatment Frequency Of Treatment Twice a Day Treatment Plan Physical Therapy Treatment Plan Bed Mobility Training,Transfer Training,Gait Training, Therapeutic Exercise,Balance Retraining,Post Op Education, Discharge Planning,Hot or Cold Pack Other Recommendations and Next Treatment review ther ex; transfers and Focus gait training. caregiver training including bed mob next tx. Precautions Other Precautions WBAT RLE Recommendations To Nursing Amount of Assist Needed 1 Person Assist Discharge Recommendations PT Discharge Recommendations Home with Assistance, Outpatient PT Transportation Needs at Discharge Private Vehicle
[2021-06-05] MEDS: ATORVASTATIN 20 MG TABLET PO (17:27)
[2021-06-05] MEDS: SODIUM CHLORIDE 0.9% FLUSH 10 ML IV (21:13)
[2021-06-05] MEDS: INSULIN GLARGINE 100 UNIT/ML 3ML PEN 50 UNIT SUBCUT (21:14)
[2021-06-06 04:21] VITALS: BP 110/46; PULSE 50; RESP 18; TEMP 36.3; O2SAT 96
--- NOTE | 2021-06-06 06:30 | PC.NURSE ---
Patients O2 was increased to 3L when CPAP was put on at start of shift. Patient has had an O2 saturation of 96-98% throughout the night. Patient would drop to below 90% when CPAP machine would disconnect from O2 but would return to 96-98% when reattached.
--- NOTE | 2021-06-06 06:57 | P.DS_ITS ---
History of Present Illness History of Present Illness Date Patient Seen: 06/06/21 Time Patient Seen: 06:57 Chief complaint: RIGHT TKA *OPB* Narrative: The history and physical is contained in the chart previously completed note, please see this note for that information. Discharge Providers Provider Date of admission: 06/05/21 10:54 Discharge Date: 06/06/21 Primary care physician: Marichuy Xie MD Consults: 06/04/21 10:45 Consult to Discharge Planning Routine Comment: Consult to Physical Therapy Evaluate & Treat Comment: Physician Instructions: postop TKA protocol Consult to Respiratory Therapy Evaluate & Treat Comment: Physician Instructions: Evaluate and treat Discharge provider: Syed Hickman MD Summary Hospital Course Discharge Diagnosis: 1. Right knee osteoarthritis 2. 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 Rheumatoid arthritis 4. Post hemorrhagic anemia 5. Morbid obesity 6. Diabetes mellitus Hospital Course: The patient was admitted to the hospital and taken directly to the operating room on June 04, 2021. He underwent a right total knee replacement with a revision tibial prosthetic due to the nonunion of the tibial plateau fracture. He tolerated this procedure well but made slow progress in physical therapy in part due to his morbid obesity. He did have a mild post hemorrhagic anemia that did not require specific treatment. On postoperative day 2 it appeared that he had made enough progress to be considered as a possible discharge at the time of this dictation. Status at Discharge Cognitive/behavioral status at discharge: oriented Functional status at discharge: uses cane/walker Overall status at discharge: patient is progressing back to baseline Time Spent with Patient Time spent: Less than 30 minutes Exam Vital Signs (past 8 hours): - 06/05/21 23:37 06/06/21 04:21 Temperature 98.8 F 97.3 F L Pulse Rate 67 50 L Respiratory Rate 16 18 Blood Pressure 105/57 L 110/46 L Pulse Oximetry 91 96 Oxygen Delivery Method Nasal Cannula,CPAP Oxygen Flow Rate 3 Narrative Exam Narrative: Right knee wound is dressed with no drainage on the bandage. Calf is soft. Light touch and motion are intact in the right lower extremity. Objective Labs Result Diagrams: 06/05/21 05:01 [facility] Medical History Anemia Aortic stenosis Asthma Diabetes Diabetic neuropathy Former smoker Heart murmur History of hemorrhoids HLD (hyperlipidemia) B[place]OP [place] (hard of hearing) HTN (hypertension) Kidney stones LVH (left ventricular hypertrophy) Nuclear senile cataract LIO on CPAP Presbyopia Surgical History (Updated 05/30/21 @ 12:42 by Leann Lee RN) History of arthroplasty of left knee (02/12/17) History of lithotripsy History of total right hip arthroplasty Social History household members: spouse Smoking Status: Former smoker alcohol intake: never Discharge Assessment & Plan Assessment and Plan Assessment: The patient is stable postoperative day 2 status post total knee replacement with a revision tibia due to a nonunion of a medial tibial plateau fracture in addition to arthritic change. His progress has been somewhat slow due to his morbid obesity. He has had a mild post hemorrhagic anemia which has not required treatment. Plan of Treatment: Discharge home today if progress in therapy continues. Follow-up in my office in 2 weeks. Discharge prescriptions have been sent for hydromorphone to [facility] pharmacy. In addition he will take meloxicam and Tylenol for pain relief and has been instructed in the use of low-dose aspirin twice a day for DVT prop hylaxis. Discharge Plan Discharge Plan Patient Disposition: Home Discharge orders & Medications Prescriptions: New acetaminophen 325 mg Tablet 650 mg PO TID 30 Days Qty: 180 RF: 0 hydromorphone 2 mg Tablet 2 mg PO Q4H PRN (Reason: Pain, Severe (7-10)) Qty: 40 RF: 0 Continued enalapril maleate 20 MG tablet 20 mg PO BID Qty: 0 RF: 0 carvedilol [Coreg] 25 MG tablet 25 mg PO BID Qty: 0 RF: 0 atorvastatin [Lipitor] 20 MG tablet 20 mg PO QPM Qty: 0 RF: 0 amlodipine 10 MG tablet 10 mg PO QDAY Qty: 0 RF: 0 potassium chloride 10 MEQ capsule, extended release 10 meq PO QDAY Qty: 0 RF: 0 Lantus U-100 Insulin 100 UNIT/1 ML solution 50 - 56 unit SQ QPM Qty: 0 RF: 0 hydrochlorothiazide 25 MG tablet 25 mg PO QDAY Qty: 0 RF: 0 Apidra SoloStar U-100 Insulin 100 UNIT/1 ML insulin pen 10 unit SQ TIDAC Qty: 0 RF: 0 omega 8-ipw-hfp-fish oil [Fish Oil] 1,000 MG capsule 1,000 mg PO QDAY Qty: 0 RF: 0 meloxicam 15 MG tablet 15 mg PO QDAY Qty: 0 RF: 0 aspirin 81 MG tablet,delayed release (DR/EC) 81 mg PO BID Qty: 60 RF: 0 hydroxyzine pamoate [Vistaril] 25 MG capsule 25 mg PO Q4HP PRN (Reason: Pain (Scale Score 4-6)) RF: 0 Discontinued oxycodone 10 MG tablet 10 mg PO Q4HP PRNQty: 60 RF: 0 Follow up/Referrals: Marichuy Xie MD [Primary Care Provider] - Syed Hickman MD [Physician] - 2 Weeks Discharge Health Status Multidrug resistant organism: No MDRO Diet/Activity/Treatments Diet: Diet as Tolerated and Carb-consistent/Diabetic Activity: You may bear weight as tolerated on your right leg. Cold/Heat Therapy: Apply ice to the right knee 15 minutes every hour as needed for pain control. Skin/Wound/Dressing Care Report to your healthcare provider any signs of infection, such as:: chills, fever, night sweats, increased pain, unusual drainage and unusual redness Dressing: Remove the John wrap 3 days after surgery. You may then shower normally, but remove the battery pack from the dressing while in the shower. Leave the deeper dressing in place until follow-up. If the central strip of the deeper dressing becomes saturated with either water or blood, please call the office to have it evaluated. Visit Report/Discharge Packet Instructions: DI for Knee Replacement, DI for Constipation, How to Prevent Falls, DI for Prescription Opioid Use Stand Alone Forms: [facility] Drain, Surgery Discharge Discharge Data Primary Care Provider: Marichuy Xie Attending Provider: Syed Hickman
[2021-06-06 08:00] VITALS: BP 123/48; PULSE 59; RESP 22; TEMP 36.3; O2SAT 93
--- NOTE | 2021-06-06 08:02 | CM.DPC ---
DCP Discharge Home Per Ortho MD, anticipate pt to d/c home with spouse and outpt follow up pending final PT CG training today and no identified barriers to discharge. Per RN, pt was still requiring CPAP overnight and RT to follow to confirm pt able to wean off oxygen and tolerate room air. Per PT, continue CG training with spouse this morning to confirm safe d/c recommendations of home with spouse assist and outpt PT. Plan: SW to follow for plan of home via spouse POV after CG training with PT this morning and any further identified discharge planning needs. Yudi Castaneda MSW
[2021-06-06] MEDS: INSULIN LISPRO 100 UNIT/ML 3ML VIAL SUBCUT ×2 (08:42→13:10)
[2021-06-06] MEDS: INSULIN LISPRO 100 UNIT/ML 3ML VIAL 10 UNIT SUBCUT ×2 (08:42→13:10)
[2021-06-06] MEDS: ACETAMINOPHEN 325 MG TABLET 650 MG PO ×2 (08:43→13:07)
[2021-06-06] MEDS: carvediloL 12.5 MG TABLET 25 MG PO (08:43)
[2021-06-06] MEDS: POTASSIUM CHLORIDE 10 MEQ TAB PO (08:43)
[2021-06-06] MEDS: MELOXICAM 7.5 MG TABLET 15 MG PO (08:43)
[2021-06-06] MEDS: SODIUM CHLORIDE 0.9% FLUSH 10 ML IV (08:44)
[2021-06-06] MEDS: hydroCHLOROthiazide 25 MG TABLET PO (08:44)
[2021-06-06] MEDS: FISH OIL 1,000 MG CAPSULE 1000 MG PO (08:44)
[2021-06-06] MEDS: ENALAPRIL 20 MG TABLET PO (08:44)
[2021-06-06] MEDS: AMLODIPINE 5 MG TABLET 10 MG PO (08:44)
[2021-06-06] MEDS: ASPIRIN EC 81 MG TABLET PO (08:44)
[2021-06-06] MEDS: DOCUSATE 100 MG CAPSULE PO (08:44)
[2021-06-06] MEDS: HYDROMORPHONE 4 MG TABLET PO (09:04)
[2021-06-06] MEDS: polyethylene glycoL 3350 17 GM POWD.PACK PO (09:04)
--- NOTE | 2021-06-06 09:38 | PT.IPTN ---
Current Diagnoses Rheumatoid arthritis, unspecified (06/05/21) Unilateral primary osteoarthritis, right knee (06/05/21) Displaced bicondylar fracture of right tibia, subsequent encounter for closed fracture with nonunion (06/05/21) Surgery Performed Operation Date: 06/04/21 07:45 Actual Procedures p Total Knee Arthroplasty(Right) - Syed Hickman MD Physical Therapy Treatment Note M2 PT-IP Current Condition Start: 06/04/21 12:03 Freq: NEEDED Status: Active Protocol: Document 06/04/21 15:45 AW (Rec: 06/04/21 16:41 AW [id number]) Physical Therapy Current Condition Current Condition Evaluation Date 06/04/21 Treatment Diagnosis s/p R TKA; difficulty in walking Onset Date 06/04/21 Weight Bearing Status Weight Bearing Status Weight Bear as Tolerated M3 PT-IP Subjective Start: 06/04/21 12:03 Freq: NEEDED Status: Active Protocol: Document 06/06/21 12:14 SP (Rec: 06/06/21 12:37 SP [id number]) Subjective Physical Therapy Visit Type Type Treatment Note Visit Start Time 08:55 Visit Stop Time 09:38 Total Visit Minutes 43 Notes Spouse completed caregiver training, donned gait belt and provided all physical assist required throughout tx. Number of PROFESSOR OF [employer]CEAN[employer]GR[employer] Visits 3 Physical Therapy Visit Comments Patient Comments Pt willing to participate in PT. Patient Goals Return home with spouse support Therapy Pain Assessment Pain When Pain Assessed At Rest Pain Present Pain Present Pain Reported Location r knee Intensity 6 Scale Used 6.5/10 at rest, 4/10 during mobility Description With Movement Pain Behaviors Facial Grimacing Pain Management Techniques Distraction,Re-positioning, Timing of Activity with Medications M4 PT-IP Mobility and Gait Start: 06/04/21 12:03 Freq: NEEDED Status: Active Protocol: Document 06/06/21 12:14 SP (Rec: 06/06/21 12:37 SP [id number]) PT-Bed Mobility Assessment Supine to Sit Supine to Sit Moderate Assistance,1 Person Assistance Scooting Scooting to Edge of Bed Standby Assistance Scooting Up and Down in Bed Standby Assistance PT-Transfer Assessment Sit to and From Stand Sit to and from Stand Contact Guard Assistance, Minimal Assistance,1 Person Assistance,Use of Upper Extremities Equipment Transfer Assistive Device Gait Belt,Front Wheeled Walker Orthotic/Prosthetic Devices or Brace: No Transfers Transfer Destination Chair Transfer Technique pt ambulated using FWW Transfer Ability Level of Assist Standby Assistance,Contact Guard Assistance,1 Person Assistance,Use of Upper Extremities Comments Mobility Comments [employer] instructed LE exercises: AAROM w/ use of strap on foot for self assist of R knee flexion approx 40 deg only tolerated. Supine>sit ( HOB flat use of strap on RLE for self assist mobility and pulling from hand to right trunk Mod A x1, scoot to EOB SBA. Pt having increased urgency that having hard time controling during position changes, able to self manage urinal in sitting, notified nursing, extra time with assist of GINNER for gown and sock change in sitting and clean floors for safety mobility. Sit>stand Min A using FWW and proper hand placement with RLE position little more forward. SPT bed> chair CGA with noted heavy BUE WB on fWW and noted not fully WB into R foot w/ elevated heel, improved with cues for awareness allow heel WB on floor during pivot. Stand>sit into chair. Assessed SaO2 throughout: with activity 88% on RA and 90-91% on RA with breath cues, mid 90s on RA at rest. Sit>stand CGA using FWW, further distance into hallway step to WBOS patterning, improved DF and allowing R heel contact during WB and back to room approx 65 ft with masked donned, cued for slow pacing, proper breath SaO2 88- 91% on RA. Pt returned to chair in room CGA with RLE position in front usign chair arms. Instructed pt on seated LE exercises to assist improve R knee flexion and DF ROM. Pt had call light and all needs in reach and in room before left. Gait Assessment Gait Gait Assistance Required: Standby Assistance,Contact Guard Assist,1 Person Assist Distance (Feet) 65 Able to Maintain Weight Bearing Status Yes During Gait Assistive Devices Assistive Device Gait Belt,Front Wheeled Walker Orthotic/Prosthetic Devices or Brace: No Gait Deviations General Gait Pattern Antalgic,Decreased Stride Length,Decreased Feet Clearance,Step-to Gait,Wide Based Gait Factors Limiting Gait Function Factors Limiting Gait Function Decreased Activity Tolerance, Decreased Strength,Limited Range of Motion,Pain, Respiratory Distress Comments Gait Comments see mobility comments. Stair Climbing Assessment Comments Stair Climbing Comments Not assessed. Pt will not need to climb stairs at home. PT-Balance Assessment Sitting Balance and Reactions Static Sitting Balance Ability Good Dynamic Sitting Balance Ability Good Standing Balance and Reactions Static Standing Balance Ability Good M5 PT-IP Objective Assessments Start: 06/04/21 12:03 Freq: NEEDED Status: Active Protocol: Document 06/04/21 15:45 AW (Rec: 06/04/21 16:41 AW [id number]) Orientation Orientation/Cognition Level of Alertness Alert Orientation Name,Day of Week,Place, Situation Language Function Ability No Deficits Noted Safety Awareness Understands Safety Issues Memory Description No Deficits Noted Gross Range of Motion Lower Extremity ROM Assessment Right Impaired Strength Lower Extremity Strength Assessment Right Impaired Hip 4/5 Ankle 4+/5 Sensation Assessment Sensation Gross Sensation WNL M6 PT-IP Treatment Start: 06/04/21 12:03 Freq: NEEDED Status: Active Protocol: Document 06/06/21 12:14 SP (Rec: 06/06/21 12:37 SP [id number]) Physical Therapy Treatment Exercises Exercises Ankle Pumps,Quad Sets,Heel Slides,Supine Hip Abduction, Seated Knee Flexion/Extension Knee ROM Measurement 40 deg flexion R knee- AAROM w /strap supine Education Education Provided Weight Bearing Status,Post-Op Packet,Safety Other Treatments Other Treatment Performed Reviewed proper breath for improved SaO2 and decrease SOB during activity, improved with cuing during mobility, pt recovers quickly 88-96% on RA . M7 PT-IP Assessment and Plan Start: 06/04/21 12:03 Freq: NEEDED Status: Active Protocol: Document 06/06/21 12:14 SP (Rec: 06/06/21 12:37 SP [id number]) PT Summary Assessment and Plan Potential Rehabilitation Potential Good Status of Condition at Evaluation Evolving Summary Impairments Pain,ROM,Strength,Balance,Bed Mobility,Transfers,Gait, Activity Tolerance Progress Towards Goals Progressing Toward Goals,Slow Progress due to Pain,Slow Progress due to Activity Tolerance Assessment Summary Pt required Mod A during bed mobility, CG- Min during sit> stand, CGA- SBA during gait using fWW and education on proper breath for improved oxygen saturation on RA 88-96% . Pt is ok to return home with to assist him when medically cleared. Pt is already set up with outpt therapy. Goals Bed Mobility Goal Standby Assistance Transfer Goal Standby Assistance,Front Wheeled Walker Gait Goal Standby Assistance,Front Wheel Walker Gait Distance 75 Days to Meet Goals 3 Frequency of Treatment Frequency Of Treatment Twice a Day Treatment Plan Physical Therapy Treatment Plan Bed Mobility Training,Transfer Training,Gait Training, Therapeutic Exercise,Balance Retraining,Post Op Education, Discharge Planning,Hot or Cold Pack Other Recommendations and Next Treatment Ther ex, ROM, bedmob, gait Focus with improved WB into RLE usign FWW further distance. Precautions Other Precautions WBAT RLE Recommendations To Nursing Amount of Assist Needed 1 Person Assist Discharge Recommendations PT Discharge Recommendations Home with Assistance, Outpatient PT Transportation Needs at Discharge Private Vehicle
[2021-06-06] MEDS: HYDROMORPHONE 2 MG TABLET PO (13:07)
--- NOTE | 2021-06-06 13:17 | PC.NURSE ---
Discharge: Feels ready to d/c home. Seen by MD and given discharge instructions. Seen by PT, trial of RA again today. At rest O2 sats are 91-94%. When he got up he did lower sats to as low as 88-89% but as soon as he stopped walking and rested his sat went back up into the low 90's. MD Hickman notified of sats, parameter to be 90% or greater and this was maintained. Spouse here with PT and she understands to do activity slowly with rest periods. Second concern was voiding inc of urine. Pt reports he has had no problems with being inc of urine before. Pt doesn't appear to know he is inc, was wet this am and didn't realize it. notified of issue. Dr. Hickman spoke with anesthesia and called urologist. Pt doesn't want to do a urology consult here, would rather do it in [facility] where they reside. Follow up appt made for pt to see pcp for follow up to this issue and pcp will send in a urology consult if this is still a concern. Neither pt now spouse want a condom cath at this time and they were given some briefs until he can obtain some. Reviewed MINESH dressing and appliance with spouse and pt. Reviewed instructions, they feel comfortable caring for drain at home. Po pain meds have been effective. Tolerates diet w/out problems. Reviewed d/c packet. Questions answered. Pt d/c home via auto w/spouse.
== END 2021-06-06 13:10 | disposition home or self-care (01) ==
LOC: OR 12:09 → AC 12:09
PROVIDERS: Admitting Provider Orthopaedic Surgery; Family Provider Internal Medicine; PCP Family Medicine; Referring Provider Orthopaedic Surgery; Visit Provider Orthopaedic Surgery
PROC: 0SRC0JZ Replacement of Right Knee Joint with Synthetic Substitute, Open Approach (ICD-10-PCS; CPT 27447; principal; 2021-06-04 07:45)
DX: M17.11 Unilateral primary osteoarthritis, right knee (principal); S82.141K Displaced bicondylar fracture of right tibia, subsequent encounter for closed fracture with nonunion; M06.9 Rheumatoid arthritis, unspecified; E11.9 Type 2 diabetes mellitus without complications; E66.01 Morbid (severe) obesity due to excess calories; Z68.41 Body mass index [BMI] 40.0-44.9, adult; Z79.4 Long term (current) use of insulin; M25.761 Osteophyte, right knee; D50.0 Iron deficiency anemia secondary to blood loss (chronic)
CPT/HCPCS: 27447; 36415; 36592; 73560; 82962; 85014; 85018; 94762; 97110; 97116; 97162; 97530; C1776; G0378; A9270; C9290; J0690; J1815; J2250; J2270; J2274; J2405; J3010